=== PATIENT | female | born 1995 | race Two or more races ===

== ENCOUNTER 2018-05-15 18:37 | Emergency (ER) | payer BC, OTHER ==
[2018-05-15 20:45] LABS: ABS Basophils 0 10^3/ul (0-0.2); ABS Eosinophils 0 10^3/ul (0-0.6); ABS Lymphocytes 1.4 10^3/ul (1.0-4.8); ABS Monocytes 0.5 10^3/ul (0-0.8); ABS Neutrophils 6.2 10^3/ul (1.5-7.7); ABS Nucleated RBC 0 10^3/ul; Eosinophil % 0.4 % (0-6); Hematocrit 41 % (35-47); Hemoglobin 14.4 g/dl (12.0-16.0); Lymphocyte % 17.4 % (25-47); Mean Corpuscular HGB Conc 35 g/dl (31-36); Mean Corpuscular Hemoglobin 33 pg (27-31); Mean Corpuscular Volume 94 fL (80-97); Mean Platelet Volume 6.7 fL (7.4-10.4); Nucleated Red Blood Cells % 0; Platelet Count 303 10^3/ul (150-450); Red Blood Count 4.42 10^6/ul (4.00-5.40); Red Cell Distribution Width 13 % (10.5-15); White Blood Count 8.1 10^3/ul (3.5-10.8)
[2018-05-15 21:04] LABS: EGFR Non-African American 128.7 (>60)
--- NOTE | 2018-05-15 21:15 | ED ---
Syncope/Near Syncope - HPI Summary HPI Summary: 22 year old female presents with syncopal episode today. She states she has history of syncope. She says she never passed out this quickly. She states that she developed left upper quadrant pain that was sharp and she felt like she was short of breath and that her heart was racing. States that she immediately felt dizzy and passed out. She was out for a couple seconds. She states she came back to as normal. She admits to abdominal pain resolved. no dizziness currently. No current chest pain shortness breath or palpitations. She states this has happened before and she normally gets abdominal pain before she passed out but is never happens quickly. She denies any pain or swelling in calf muscles. no Recent travel. No family history of blood clots. She denies any family history of passing out. she denies any family history of cardiac disease. Is not a smoker. - History Of Current Complaint Chief Complaint: EDSyncope Time Seen by Provider: 05/15/18 20:25 - Allergies/Home Medications Allergies/Adverse Reactions: Allergies Allergy/AdvReac Type Severity Reaction Status Date / Time No Known Allergies Allergy Verified 05/15/18 18:45 Home Medications: Home Medications NK [No Home Medications Reported] 05/15/18 [History Confirmed 05/15/18] PMH/Surg Hx/FS Hx/Imm Hx Endocrine/Hematology History: Denies: Hx Anticoagulant Therapy Respiratory History: Denies: Hx Asthma - Immunization History Immunizations Up to Date: Yes Infectious Disease History: No Infectious Disease History: Denies: Traveled Outside the [place] in Last 30 Days - Family History Known Family History: Positive: Hypertension Negative: Cardiac Disease - Social History Alcohol Use: Occasionally Substance Use Type: Reports: None Smoking Status (MU): Never Smoked Tobacco Review of Systems Negative: Fever Positive: Palpitations - resolved. Negative: Chest Pain Negative: Shortness Of Breath Positive: Abdominal Pain - resolved Positive: Syncope All Other Systems Reviewed And Are Negative: Yes Physical Exam Triage Information Reviewed: Yes Vital Signs On Initial Exam: Initial Vitals Temp Pulse Resp BP Pulse Ox 98.4 F 63 14 111/78 100 05/15/18 18:42 05/15/18 18:42 05/15/18 18:42 05/15/18 18:42 05/15/18 18:42 Vital Signs Reviewed: Yes Appearance: Positive: Well-Appearing Skin: Positive: Warm, Dry Head/Face: Positive: Normal Head/Face Inspection Eyes: Positive: Normal, EOMI, JAMISON, Conjunctiva Clear ENT: Positive: Normal ENT inspection, Pharynx normal, TMs normal Respiratory/Lung Sounds: Positive: Clear to Auscultation, Breath Sounds Present Cardiovascular: Positive: Normal, RRR Abdomen Description: Positive: Nontender, Soft Bowel Sounds: Positive: Present Musculoskeletal: Positive: Normal Neurological: Positive: Sensory/Motor Intact, Alert, Oriented to Person Place, Time, CN Intact II-III Psychiatric: Positive: Normal Diagnostics - Vital Signs Vital Signs Temp Pulse Resp BP Pulse Ox 05/15/18 18:42 98.4 F 63 14 111/78 100 - Laboratory Lab Results: Lab Results 05/15/18 05/15/18 05/15/18 Range/Units 20:34 20:34 20:34 WBC 8.1 (3.5-10.8) 10^3/ul RBC 4.42 (4.00-5.40) 10^6/ul Hgb 14.4 (12.0-16.0) g/dl Hct 41 (35-47) % MCV 94 (80-97) fL MCH 33 H (27-31) pg MCHC 35 (31-36) g/dl RDW 13 (10.5-15) % Plt Count 303 (150-450) 10^3/ul MPV 6.7 L (7.4-10.4) fL Neut % (Auto) 76.1 (38-83) % Lymph % (Auto) 17.4 L (25-47) % [place] % (Auto) 5.8 (0-7) % Eos % (Auto) 0.4 (0-6) % Baso % (Auto) 0.3 (0-2) % Absolute Neuts (auto) 6.2 (1.5-7.7) 10^3/ul Absolute Lymphs (auto) 1.4 (1.0-4.8) 10^3/ul Absolute Monos (auto) 0.5 (0-0.8) 10^3/ul Absolute Eos (auto) 0 (0-0.6) 10^3/ul Absolute Basos (auto) 0 (0-0.2) 10^3/ul Absolute Nucleated RBC 0 10^3/ul Nucleated RBC % 0 Sodium 139 (135-145) mmol/L Potassium 3.6 (3.5-5.0) mmol/L Chloride 105 (101-111) mmol/L Carbon Dioxide 26 (22-32) mmol/L Anion Gap 8 (2-11) mmol/L BUN 10 (6-24) mg/dL Creatinine 0.59 (0.51-0.95) mg/dL Est GFR ( Amer) 155.7 (>60) Est GFR (Non-Af Amer) 128.7 (>60) BUN/Creatinine Ratio 16.9 (8-20) Glucose 101 H (70-100) mg/dL Lactic Acid 0.9 (0.5-2.0) mmol/L Calcium 9.9 (8.6-10.3) mg/dL Magnesium 2.2 (1.9-2.7) mg/dL Total Bilirubin 0.50 (0.2-1.0) mg/dL AST 12 L (13-39) U/L ALT 9 (7-52) U/L Alkaline Phosphatase 63 (34-104) U/L Troponin I 0.00 (<0.04) ng/mL Total Protein 7.3 (6.4-8.9) g/dL Albumin 4.7 (3.2-5.2) g/dL Globulin 2.6 (2-4) g/dL Albumin/Globulin Ratio 1.8 (1-3) TSH Pending Beta HCG, Quant < 0.60 mIU/mL Result Diagrams: 05/15/18 20:34 05/15/18 20:34 Lab Statement: Any lab studies that have been ordered have been reviewed, and results considered in the medical decision making process. - EKG No standard instances Cardiac Rate: NL EKG Rhythm: Sinus Rhythm Summary of EKG Findings: sinus rhythm Course/Dx Course Of Treatment: 22 year old female presents with syncopal episode today. She states she has history of syncope. She says she never passed out this quickly. She states that she developed left upper quadrant pain that was sharp and she felt like she was short of breath and that her heart was racing. States that she immediately felt dizzy and passed out. She was out for a couple seconds. She states she came back to as normal. She admits to abdominal pain resolved. no dizziness currently. No current chest pain shortness breath or palpitations. She states this has happened before and she normally gets abdominal pain before she passed out but is never happens quickly. She denies any pain or swelling in calf muscles. no Recent travel. No family history of blood clots. She denies any family history of passing out. she denies any family history of cardiac disease. Is not a smoker. On exam lungs clear to auscultation. Abdomen soft nontender. EKG shows sinus rhythm. labs within normal limits. patient understand and agrees with plan. - Diagnoses Differential Diagnosis/HQI/PQRI: Positive: Hypoglycemia, Hypovolemia, Vasovagal Episode Provider Diagnoses: Syncope Discharge - Sign-Out/Discharge Documenting (check all that apply): Patient Departure - Discharge Plan Condition: Good Disposition: HOME Patient Education Materials: Syncope (ED) Referrals: No Primary Care Phys,NOPCP [Primary Care Provider] - Additional Instructions: Drink plenty of fluids Eat small snacks as tolerated Follow up with health center within 5 days Return to ED if develop any new or worsening symptoms - Billing Disposition and Condition Condition: GOOD Disposition: Home
[2018-05-15 21:16] LABS: Urine Appearance Cloudy; Urine Blood Negative (Negative); Urine Color Yellow; Urine Ketones Negative (Negative); Urine Protein Negative (Negative); Urine Red Blood Cell Absent (Absent); Urine Specific Gravity 1.009 (1.010-1.030); Urine Urobilinogen Negative (Negative); Urine White Blood Cell 1+(6-10/hpf) (Absent)
[2018-05-15 21:46] VITALS: BP 123/79
== END 2018-05-15 21:46 | disposition home or self-care (01) ==
LOC: ED 18:37
DX: R55 Syncope and collapse (principal); R00.2 Palpitations; R10.9 Unspecified abdominal pain
CPT/HCPCS: 36415; 80053; 81003; 81015; 83605; 83735; 84443; 84484; 84702; 85025; 87086; 93005; 99282